=== PATIENT | male | born 1990 | race Caucasian/White ===

== ENCOUNTER → 2017-05-24 09:23 | Outpatient (CLI) | payer MEDICARE | END | disposition home or self-care (01) | LOC: D.US 09:23 | DX: R10.13 Epigastric pain (principal) ==

== ENCOUNTER → 2017-05-25 16:38 | Outpatient (CLI) | payer MEDICARE | END | disposition home or self-care (01) | LOC: D.CT 16:30 | DX: N13.30 Unspecified hydronephrosis (principal) ==